=== PATIENT | female | born 1990 | race Caucasian/White ===

== ENCOUNTER 2019-04-23 22:32 | Emergency (ER) | payer OTHER ==
[~2019-04-23] VITALS: Ht 165.1 cm; Wt 111.1 kg
[~2019-04-23 22:32] MED LIST: ACETAMINOPHEN325 M1 PO; ALBUTEROL INHAL17 GM IH; AMOXICILLIN875 MG PO; AZITHROMYCIN 2250 MG PO; ERY-TAB250 MG PO; KEFLEX500 MG PO; MECLIZINE HCL25 M1 PO; NAPROSYN500 MG PO; NOHOMEMEDICATIONS; NORCO 5-325 TA1 EACH PO; PHENERGAN 25 MG25 MG PO; PREDNISONE 20 M20 MG PO; PRENA1 CHEW TABL1 MG PO; PRENATAL TABLE1 EAC3 PO; THERAGRAN-M AD1 EAC2 PO; TYLENOL SINUS PO; VISTARIL 25 MG25 M1 OR
[2019-04-23 22:53] LABS: ABSOLUTE BASOPHILS 0.2 thou/uL (0.0-0.2); ABSOLUTE EOSINOPHILS 0.3 thou/uL (0.0-0.7); ABSOLUTE LYMPHOCYTES 2.8 thou/uL (0.8-5.3); ABSOLUTE MONOCYTES 0.7 thou/uL (0.0-1.2); ABSOLUTE NEUTROPHILS 8.9 thou/uL (1.6-8.1); BASOPHILS 1.2 %; EOSINOPHILS 2.2 %; HEMATOCRIT 40.7 % (37.0-47.0); HEMOGLOBIN 13.4 gm/dL (12.0-15.0); LYMPHOCYTES 21.6 %; MCH 26.7 pg (26.0-34.0); MCHC 32.8 g/dL (28.0-37.0); MCV 81.2 fL (80.0-100.0); MONOCYTES 5.3 %; MPV 8.3 fl. (7.2-11.1); NUCLEATED RBCS 0 /100WBC; PLATELET COUNT* 355 thou/uL (150-400); POLYS 69.7 %; RBC 5.02 mil/uL (4.20-5.00); RDW-CV 14.9 % (10.5-14.5); WBC 12.8 thou/uL (4.0-11.0)
[2019-04-23 23:01] LABS: ANION GAP 8 mmol/L (7-16); BUN 7 mg/dL (7-18); CALCIUM 9.1 mg/dL (8.5-10.1); CHLORIDE 103 mmol/L (98-107); CO2 29 mmol/L (21-32); CREATININE 0.9 mg/dL (0.6-1.3); GLUCOSE 98 mg/dL (70-99); POTASSIUM 3.9 mmol/L (3.5-5.1); SODIUM 140 mmol/L (136-145)
[2019-04-23 23:12] LABS: ALBUMIN 3.9 g/dL (3.4-5.0); ALKALINE PHOSPHATASE 57 U/L (46-116); LIPASE 110 U/L (73-393); NT-PRO BRAIN NAT PEPTIDE 28 pg/mL (<300); SGOT 20 U/L (15-37); SGPT 31 U/L (30-65); TOTAL BILIRUBIN 0.2 mg/dL (<0.1-1.0); TOTAL PROTEIN 8.4 g/dL (6.4-8.2); TROPONIN-I LEVEL <0.06 ng/mL (<0.06)
[2019-04-23 23:28] LABS: URINE BILIRUBIN NEGATIVE (Negative); URINE BLOOD TRACE (Negative); URINE CLARITY CLEAR; URINE COLOR STRAW; URINE GLUCOSE-RANDOM NEGATIVE (Negative); URINE KETONES NEGATIVE (Negative); URINE LEUKOCYTES-REFLEX NEGATIVE (Negative); URINE NITRITE-REFLEX NEGATIVE (Negative); URINE PROTEIN NEGATIVE (Negative); URINE SPECIFIC GRAVITY <= 1.005 (1.005-1.030); URINE UROBILINOGEN 0.2 E.U./dl (0.2-1.0)
[2019-04-23 23:33] LABS: AMP/METHAMP Negative (Negative); BARBITURATES Negative (Negative); BENZODIAZEPINES Negative (Negative); COCAINE Negative (Negative); METHADONE Negative (Negative); OPIATES Negative (Negative); PCP Negative (Negative); THC Negative (Negative)
[2019-04-23] MEDS ORDERED: ATIVAN1 MG PO (23:51)
[2019-04-24 00:15] VITALS: BP 170/70
--- NOTE | 2019-04-24 10:28 | EKG ---
[place] [address] ELECTROCARDIOGRAM REPORT Name: LIA AMAYA Room: [facility]#: [id number] Admission: 04/23/19 Attend Phys: Discharge: 04/24/19 Date of : 88 Report #: [id number] THIS REPORT FOR: //name// [facility] ED Test Date: 2019-04-23 Test Time: 22:39:52 Pat Name: LIA AMAYA Department: Room: Gender: F Sane Rn: [place] : 1990 Requested By: Juwan Johnson Order Number: [id number] MD: West Heck Measurements Intervals [place] Rate: 113 P: 43 SD: 179 QRS: 6 QRSD: 103 T: 13 QT: 334 QTc: 458 Interpretive Statements Sinus tachycardia Probable left ventricular hypertrophy Electronically Signed On 04-24-2019 10:28:16 CDT by West Heck [email or web address] <ELECTRONICALLY SIGNED> By: West Heck MD, [facility] 04/24/19 1028 2239 [id number] West Heck MD, FACC /EPI
== END 2019-04-24 00:15 | disposition home or self-care (01) ==
LOC: M.ERS 22:32
PROVIDERS: Emergency Medicine
DX: R07.89 Other chest pain (principal); F41.9 Anxiety disorder, unspecified; R79.1 Abnormal coagulation profile; F90.9 Attention-deficit hyperactivity disorder, unspecified type; E28.2 Polycystic ovarian syndrome; F31.9 Bipolar disorder, unspecified; K58.9 Irritable bowel syndrome, unspecified; Z91.041 Radiographic dye allergy status; Z91.048 Other nonmedicinal substance allergy status

== ENCOUNTER 2019-04-24 09:44 | Emergency (ER) | payer OTHER ==
[~2019-04-24] VITALS: Ht 165.1 cm; Wt 90.7 kg
[~2019-04-24 09:44] MED LIST changes: +ATIVAN1 MG PO
[2019-04-24 11:55] VITALS: BP 141/96
== END 2019-04-24 11:54 | disposition home or self-care (01) ==
LOC: M.ERS 09:44
DX: R00.2 Palpitations (principal); E28.2 Polycystic ovarian syndrome; F90.9 Attention-deficit hyperactivity disorder, unspecified type; F31.9 Bipolar disorder, unspecified; K58.9 Irritable bowel syndrome, unspecified; Z91.041 Radiographic dye allergy status; Z91.048 Other nonmedicinal substance allergy status